=== PATIENT | female | born 1980 | race Caucasian/White ===

== ENCOUNTER 2023-12-30 09:00 | Emergency (ER) | payer MEDICARE ==
[~2023-12-30] VITALS: Ht 165.1 cm; Wt 105.3 kg
[2023-12-30 09:39] LABS: BASO # 0.1 10^3/uL (0.0-0.2); BASO % 0.8 % (0.0-1.0); EOS # 0.3 10^3/uL (0.0-0.5); HEMATOCRIT 42.5 % (36.0-47.0); HEMOGLOBIN 14.6 g/dl (12.0-15.5); LYMPH # 2.2 10^3/uL (1.5-5.0); LYMPH % 34.9 % (24.0-44.0); MEAN CORPUSCULAR HEMOGLOBIN 32.1 pg (27.0-33.0); MEAN CORPUSCULAR HGB CONC 34.4 g/dl (32.0-36.5); MEAN CORPUSCULAR VOLUME 93.4 fl (80.0-96.0); MONO # 0.5 10^3/uL (0.0-0.8); MONO % 7.5 % (2.0-8.0); NEUTROPHILS # 3.2 10^3/uL (1.5-8.5); NEUTROPHILS % 51.5 % (36.0-66.0); PLATELET COUNT, AUTOMATED 219 10^3/uL (150-450); RED BLOOD COUNT 4.55 10^6/uL (4.00-5.40); WHITE BLOOD COUNT 6.3 10^3/uL (4.0-10.0)
[2023-12-30 10:10] LABS: LIPASE 27 U/L (12-53)
[2023-12-30 10:12] LABS: ALBUMIN 3.3 G/DL (3.2-5.2); ALKALINE PHOSPHATASE 50 U/L (46-116); ALT/SGPT 11 U/L (7.0-40); AST/SGOT 10 U/L (<34); BILIRUBIN,DIRECT 0.3 MG/DL (<0.4); BILIRUBIN,TOTAL 0.7 MG/DL (0.3-1.2); BLOOD UREA NITROGEN 8 MG/DL (9-23); CALCIUM LEVEL 9.1 MG/DL (8.5-10.1); CARBON DIOXIDE LEVEL 24 MMOL/L (20-31); CHLORIDE LEVEL 112 MMOL/L (98-107); CK-MB VALUE MASS < 1.0 NG/ML (<3.6); CPK CREATINE PHOSPHOKINASE 34 U/L (34-145); CREATININE FOR GFR 0.64 MG/DL (0.55-1.30); GLOMERULAR FILTRATION RATE > 60.0 (>58); GLUCOSE, FASTING 96 MG/DL (60-100); MB/CK RELATIVE INDEX 2.94 (< OR =4); POTASSIUM SERUM 3.9 MMOL/L (3.5-5.1); SODIUM LEVEL 140 MMOL/L (136-145)
[2023-12-30 11:26] LABS: CK-MB VALUE MASS < 1.0 NG/ML (<3.6)
[2023-12-30 11:29] LABS: CPK CREATINE PHOSPHOKINASE 41 U/L (34-145); MB/CK RELATIVE INDEX 2.43 (< OR =4)
[2023-12-30] MEDS: diazePAM 5MG TABLET PO ONE (11:58)
[2023-12-30 12:16] VITALS: O2SAT 98
[2023-12-30 12:27] VITALS: BP 152/86
[2023-12-30 12:41] VITALS: TEMP 96.9
== END 2023-12-30 12:42 | disposition home or self-care (01) ==
LOC: M ED 09:00 → EDBD 09:00 → M ED 12:42
DX: R07.9 Chest pain, unspecified (principal); I10 Essential (primary) hypertension; F41.9 Anxiety disorder, unspecified; R00.1 Bradycardia, unspecified; Z87.891 Personal history of nicotine dependence; Z88.0 Allergy status to penicillin; Z88.8 Allergy status to other drugs, medicaments and biological substances

== ENCOUNTER 2024-03-27 13:42 | Emergency (ER) | payer MEDICARE ==
[~2024-03-27] VITALS: Ht 165.1 cm; Wt 113.0 kg
[2024-03-27 14:34] LABS: BASO % 0.3 % (0.0-1.0); EOS # 0.5 10^3/uL (0.0-0.5); EOS % 5.4 % (0.0-3.0); HEMATOCRIT 42.4 % (36.0-47.0); HEMOGLOBIN 14.4 g/dl (12.0-15.5); LYMPH # 2.7 10^3/uL (1.5-5.0); LYMPH % 31.5 % (24.0-44.0); MEAN CORPUSCULAR HEMOGLOBIN 32.4 pg (27.0-33.0); MEAN CORPUSCULAR VOLUME 95.5 fl (80.0-96.0); MONO # 0.6 10^3/uL (0.0-0.8); MONO % 7.1 % (2.0-8.0); NEUTROPHILS # 4.8 10^3/uL (1.5-8.5); NEUTROPHILS % 55.4 % (36.0-66.0); PLATELET COUNT, AUTOMATED 236 10^3/uL (150-450); RED BLOOD COUNT 4.44 10^6/uL (4.00-5.40); WHITE BLOOD COUNT 8.7 10^3/uL (4.0-10.0)
[2024-03-27 14:48] LABS: INR 0.89; PARTIAL THROMBOPLASTIN TIME 27.1 SECONDS (24.8-34.2); PROTHROMBIN TIME 12.3 SECONDS (12.5-14.5)
[2024-03-27 15:01] LABS: LIPASE 31 U/L (12-53)
[2024-03-27 15:04] LABS: ALBUMIN 3.7 G/DL (3.2-5.2); ALKALINE PHOSPHATASE 50 U/L (35-104); ALT/SGPT 10 U/L (7.0-40); AST/SGOT 10 U/L (<34); BILIRUBIN,DIRECT 0.2 MG/DL (<0.4); BILIRUBIN,TOTAL 0.7 MG/DL (0.3-1.2); BLOOD UREA NITROGEN 15 MG/DL (9-23); CALCIUM LEVEL 8.6 MG/DL (8.5-10.1); CARBON DIOXIDE LEVEL 28 MMOL/L (20-31); CHLORIDE LEVEL 108 MMOL/L (98-107); CK-MB VALUE MASS < 1.0 NG/ML (<3.6); CPK CREATINE PHOSPHOKINASE 51 U/L (34-145); CREATININE FOR GFR 0.62 MG/DL (0.55-1.30); GLOMERULAR FILTRATION RATE > 60.0 (>58); GLUCOSE, FASTING 85 MG/DL (60-100); MB/CK RELATIVE INDEX 1.96 (< OR =4); POTASSIUM SERUM 3.9 MMOL/L (3.5-5.1); SODIUM LEVEL 141 MMOL/L (136-145); TOTAL PROTEIN 6.6 G/DL (5.7-8.2)
[2024-03-27] MEDS: LORazepam 2 MG/ML 1ML VIAL IV STA (15:05)
[2024-03-27 15:08] LABS: FREE T4 1.12 NG/DL (0.89-1.76); THYROID STIMULATING HORMONE 1.747 uIU/ML (0.55-4.78)
[2024-03-27 15:16] VITALS: TEMP 97.6
[2024-03-27 15:56] LABS: CK-MB VALUE MASS < 1.0 NG/ML (<3.6)
[2024-03-27 16:00] LABS: CPK CREATINE PHOSPHOKINASE 47 U/L (34-145); MB/CK RELATIVE INDEX 2.12 (< OR =4)
[2024-03-27] MEDS ORDERED: ISOVUE-370 76% 100ML VIAL As Ordered ONE (16:59)
[2024-03-27 17:00] VITALS: O2SAT 98
[2024-03-27] MEDS: LORazepam 1 MG TAB PO STA (18:30)
[2024-03-27 18:40] LABS: SALICYLATE LEVEL < 3.0 MG/DL (<30)
[2024-03-27 18:55] LABS: AMPHETAMINES LEVEL URINE NEGATIVE (NEGATIVE); BARBITURATES URINE NEGATIVE (NEGATIVE); BENZODIAZEPINES URINE NEGATIVE (NEGATIVE); COCAINE METABOLITE URINE NEGATIVE (NEGATIVE); METHADONE URINE NEGATIVE (NEGATIVE); OPIATES URINE NEGATIVE (NEGATIVE)
[2024-03-27 18:56] LABS: PHENCYCLIDINE URINE NEGATIVE (NEGATIVE)
[2024-03-27 19:02] LABS: CANNABINOIDS URINE POSITIVE (NEGATIVE)
[2024-03-27 21:11] VITALS: BP 160/79
== END 2024-03-27 21:29 | disposition home or self-care (01) ==
LOC: M ED 13:42 → EDBD 13:42 → M ED 21:29
DX: F43.0 Acute stress reaction (principal); F41.9 Anxiety disorder, unspecified; F43.10 Post-traumatic stress disorder, unspecified; F17.210 Nicotine dependence, cigarettes, uncomplicated; F12.10 Cannabis abuse, uncomplicated; Z88.0 Allergy status to penicillin; Z88.8 Allergy status to other drugs, medicaments and biological substances
CPT/HCPCS: 71045; 71275; 80048; 80076; 80143; 80307; 82550; 82553; 83690; 84439; 84443; 84484; 85025; 85610; 85730; 93005; 93041; 94760; 96374; 99285; J2060; Q9967

== ENCOUNTER → 2024-06-16 | Outpatient (REF) | payer MEDICARE, MEDICAID ==
[2024-06-16 13:52] LABS: ALBUMIN 3.8 G/DL (3.2-5.2); ALKALINE PHOSPHATASE 59 U/L (35-104); ALT/SGPT 23 U/L (7.0-40); AST/SGOT 24 U/L (<34); BILIRUBIN,TOTAL 0.6 MG/DL (0.3-1.2); BLOOD UREA NITROGEN 11 MG/DL (9-23); CARBON DIOXIDE LEVEL 31 MMOL/L (20-31); CHLORIDE LEVEL 105 MMOL/L (98-107); CHOLESTEROL LEVEL 214 MG/DL (<200); CHOLESTEROL RISK RATIO 3.06 (<5); CREATININE FOR GFR 0.67 MG/DL (0.55-1.30); GLOMERULAR FILTRATION RATE > 90.0 (>58); GLUCOSE, FASTING 88 MG/DL (60-100); HDL CHOLESTEROL 69.8 MG/DL (>40); LDL CHOLESTEROL 125.4 MG/DL (<100); NON-HDL-C 144.2 MG/DL; SODIUM LEVEL 141 MMOL/L (136-145); TOTAL PROTEIN 6.9 G/DL (5.7-8.2); TRIGLYCERIDES LEVEL 94 MG/DL (<150)
[2024-06-16 13:53] LABS: HEMOGLOBIN A1c 4.8 % (4.0-6.0)
[2024-06-16 13:54] LABS: THYROID STIMULATING HORMONE 2.902 uIU/ML (0.55-4.78)
== END ==
LOC: M LAB REF 11:57
PROVIDERS: ATTEND Student in an Organized Health Care Education/Training Program
DX: Z68.41 Body mass index [BMI] 40.0-44.9, adult (principal); Z13.1 Encounter for screening for diabetes mellitus; Z13.6 Encounter for screening for cardiovascular disorders

== ENCOUNTER 2024-09-09 16:45 | Emergency (ER) | payer MEDICARE, MEDICAID ==
[~2024-09-09] VITALS: Ht 165.1 cm; Wt 110.6 kg
[2024-09-09 17:00] VITALS: TEMP 96.6
[2024-09-09] MEDS ORDERED: LORA1TAB23 (17:02)
[2024-09-09] MEDS: ACETAMINOPHEN 500 MG TAB PO ONE (17:30)
[2024-09-09] MEDS: ONDANSETRON 4MG ORAL DISINTEGRATING TAB PO ONE (17:36)
[2024-09-09] MEDS: PERCOCET 5MG/325MG TAB PO ONE (18:19)
[2024-09-09 20:16] VITALS: BP 169/74
[2024-09-09 20:30] VITALS: O2SAT 98
== END 2024-09-09 20:46 | disposition home or self-care (01) ==
LOC: M ED 16:45 → EDBD 16:45 → M ED 20:46
DX: S00.03XA Contusion of scalp, initial encounter (principal); S80.11XA Contusion of right lower leg, initial encounter; Y92.019 Unspecified place in single-family (private) house as the place of occurrence of the external cause; Y93.9 Activity, unspecified; Y99.9 Unspecified external cause status; I10 Essential (primary) hypertension; J45.909 Unspecified asthma, uncomplicated; Z88.0 Allergy status to penicillin; Z88.5 Allergy status to narcotic agent; Z79.899 Other long term (current) drug therapy